=== PATIENT | male | born 2000 | race Caucasian/White ===

== ENCOUNTER 2021-05-30 19:54 | Inpatient (IN) ==
--- NOTE | 2021-05-30 20:13 | Emergency Department Note ---
Impression & Plan Drug overdose, Suicidal thoughts ADMIT TO PSYCHIATRY ED Provider Note HPI: The patient is a 20-year-old male with history of anxiety/depression, presents the emergency department after a escitalopram overdose. Patient states that approximately 1 hour prior to arrival he took 15 separate 10 mg tablets of escitalopram. Patient states that this was an attempt to harm himself. Patient states he has been feeling increasingly anxious and depressed recently. He declines to expand on this very much during my history, he is cooperative on arrival, denies any recent alcohol or drug use, states that shortly after taking these medications he informed his girlfriend of the ingestion and therefore they brought him to the ED for further assessment. Patient is alert and oriented on arrival, otherwise hemodynamically stable. ROS: -Psychiatric: Suicidal thoughts, depression, drug ingestion/suicide attempt *10 point review systems was conducted and is otherwise negative unless stated above *Outpatient medications and allergy history reviewed PE: General: Alert, NAD HEENT: Normocephalic, atraumatic Eyes: Extraocular eye movement is intact, no scleral erythema Pulmonary: Clear to auscultation bilaterally, no wheezing Cardio: Regular rate and rhythm GI: Abdomen is soft, nontender : No suprapubic tenderness MSK: No evidence of trauma or malformation of the extremities, no edema Skin: No evidence of rash Neuro: Alert, no focal deficits Psychiatric: Cooperative athletic monitor: - An order was placed for continuous cardiac monitoring - Patient was noted to be in sinus rhythm with rate of 60 EKG: Rate: 60 Rhythm: Normal sinus rhythm Intervals: Within normal limits ST changes: No ST elevation Time: 2017 Medical Decision Making: Patient presented to the emergency department after drug overdose on Lexapro. I discussed the case with poison control, recommended observation for 6 hours for medical clearance. Work was obtained that does not show any critical abnormalities. Patient remained stable on the monitor. EKG does not show any evidence of arrhythmia or prolonged intervals. Patient was observed here in the ED until 0200 at the time of signout to my colleague, Dr. Briceno, bed search will be ongoing in the morning for placement. At this time the patient is voluntary/201. He is remained calm and cooperative while in the ED. Patient was signed out in stable condition. Diagnosis: 1. Suicide attempt via drug ingestion 2. SRI overdose 3. Anxiety/depression Disposition: Handoff Chava Lewis DO Emergency Medicine Past Med/Surg History Medical History (Updated 05/31/21 @ 01:53 by Chava Lewis DO) COVID-19 Surgical History No pertinent past surgical history Family History Other Family history non-contributory Social History Smoking Status: Never smoker Preferred Language: Maltese Feels Safe at Home: Yes Allergies Allergies Allergy/AdvReac Type Severity Reaction Status Date / Time DUST Allergy RED EYES, Uncoded 01/29/21 01:48 SNEEZE Home Meds Home Medications Medication Instructions Recorded Confirmed escitalopram oxalate 10 mg tablet 10 mg PO DAILY 05/30/21 05/30/21 (Lexapro) Results & Data (ED) Vital Signs Vital Signs - 24 hr 05/30/21 19:57 05/30/21 20:06 05/30/21 20:10 Temperature 36.8 C Temperature Source Temporal Artery Scan Pulse Rate 76 Pulse Rate [Apical] Pulse Rhythm [Apical] Pulse Strength [Apical] Respiratory Rate 18 Respiratory Effort / Characteristics Non-Labored Respiratory Depth Normal Normal Respiratory Pattern Regular Blood Pressure 147/83 H Blood Pressure [Right Arm] Blood Pressure Mean 104 Blood Pressure Mean [Right Arm] Blood Pressure Position [Right Arm] Pulse Oximetry 96 96 Oxygen Delivery Method Room Air Room Air Sepsis Recent Fever Within 48 Hours No Sepsis New/Unexplained Change in Mental Status N/A Sepsis Action Taken by Nursing No Action Required 05/30/21 21:54 05/30/21 23:31 05/31/21 01:18 Temperature Temperature Source Pulse Rate Pulse Rate [Apical] 55 L 56 L 64 Pulse Rhythm [Apical] Regular Regular Pulse Strength [Apical] Normal Normal Respiratory Rate 18 16 16 Respiratory Effort / Characteristics Non-Labored Spontaneous Non-Labored Non-Labored Spontaneous Respiratory Depth Normal Normal Normal Respiratory Pattern Regular Blood Pressure Blood Pressure [Right Arm] 125/70 119/56 L 129/58 L Blood Pressure Mean Blood Pressure Mean [Right Arm] 88 77 81 Blood Pressure Position [Right Arm] Lying Lying Pulse Oximetry 97 95 97 Oxygen Delivery Method Room Air Room Air Room Air Sepsis Recent Fever Within 48 Hours Sepsis New/Unexplained Change in Mental Status Sepsis Action Taken by Nursing Laboratory Data Result diagrams: 05/30/21 20:26 05/30/21 20:26 Lab Results 05/30/21 05/30/21 05/30/21 Range/Units 20:07 20:07 20:26 WBC 7.02 (4.8-10.8) K/uL RBC 5.20 (4.7-6.1) M/uL Hgb 15.9 (14.0-18.0) g/dL Hct 46.3 (42-52) % MCV 89.0 (80-100) fL MCH 30.6 (25-34) pg MCHC 34.3 (32-36) g/dL RDW Std Deviation 40.2 (36.4-46.3) fL RDW Coeff of Micah 12.3 (11.5-14.5) % Plt Count 241 (130-400) K/uL MPV 11.0 H (7.4-10.4) fL Immature Gran % (Auto) 0.1 % Neut % (Auto) 71.1 % Lymph % (Auto) 22.8 % Kershaw % (Auto) 5.0 % Eos % (Auto) 0.4 % Baso % (Auto) 0.6 % Neut # (Auto) 4.99 (1.4-6.5) K/uL Lymph # (Auto) 1.60 (1.2-3.4) K/uL Kershaw # (Auto) 0.35 (0.11-0.59) K/uL Eos # (Auto) 0.03 (0-0.5) K/uL Baso # (Auto) 0.04 (0-0.2) K/uL Immature Gran # (Auto) 0.01 (0.00-0.02) K/uL Sodium (136-145) mmol/L Potassium (3.5-5.1) mmol/L Chloride (98-107) mmol/L Carbon Dioxide (21-32) mmol/L Anion Gap (3-11) BUN (6-23) mg/dl Creatinine (0.6-1.4) mg/dl Est Cr Clr Drug Dosing ml/min Est GFR ( Amer) ml/min Est GFR (Non-Af Amer) ml/min BUN/Creatinine Ratio (10-20) Glucose (70-99(Fasting)) mg/dl Calcium (8.5-10.1) mg/dl Total Bilirubin (0.2-1.0) mg/dl AST (13-39) U/L ALT (7-52) U/L Alkaline Phosphatase (34-104) U/L Total Protein (6.0-8.3) gm/dl Albumin (3.4-5.0) gm/dl Globulin (2.5-4.0) gm/dl Albumin/Globulin Ratio (0.9-2) TSH (0.300-4.500) uIu/ml Urine Color Yellow Urine Appearance Clear (Clear) Urine pH 5.5 (4.5-7.5) Ur Specific Huddy 1.014 (1.000-1.030) Urine Protein Negative (Negative) Urine Glucose (UA) Negative (Negative) Urine Ketones Negative (Negative) Urine Blood Negative (Negative) Urine Nitrite Negative (Negative) Urine Bilirubin Negative (Negative) Urine Urobilinogen Negative (Negative) Ur Leukocyte Esterase Negative (Negative) Salicylates (3.0-30) mg/dl Urine Opiates Screen Neg (Neg) Ur Methadone, Qual Neg (Neg) Acetaminophen (10-30) ug/ml Urine Barbiturates Neg (Neg) Ur Phencyclidine (PCP) Neg (Neg) U Amphetamin/Meth Scrn Neg (Neg) MDMA (Ecstasy) Screen Neg (Neg) U Benzodiazepines Scrn Neg (Neg) Ur Cocaine Metabolite Neg (Neg) U Marijuana (THC) Screen Pos H (Neg) Ethyl Alcohol mg/dL (<10.0) mg/dl SARS-CoV-2, RNA, NAAT (NEGATIVE) 05/30/21 05/30/21 05/30/21 Range/Units 20:26 20:26 20:26 WBC (4.8-10.8) K/uL RBC (4.7-6.1) M/uL Hgb (14.0-18.0) g/dL Hct (42-52) % MCV (80-100) fL MCH (25-34) pg MCHC (32-36) g/dL RDW Std Deviation (36.4-46.3) fL RDW Coeff of Micah (11.5-14.5) % Plt Count (130-400) K/uL MPV (7.4-10.4) fL Immature Gran % (Auto) % Neut % (Auto) % Lymph % (Auto) % Kershaw % (Auto) % Eos % (Auto) % Baso % (Auto) % Neut # (Auto) (1.4-6.5) K/uL Lymph # (Auto) (1.2-3.4) K/uL Kershaw # (Auto) (0.11-0.59) K/uL Eos # (Auto) (0-0.5) K/uL Baso # (Auto) (0-0.2) K/uL Immature Gran # (Auto) (0.00-0.02) K/uL Sodium 138 (136-145) mmol/L Potassium 4.2 (3.5-5.1) mmol/L Chloride 101 (98-107) mmol/L Carbon Dioxide 28 (21-32) mmol/L Anion Gap 9 (3-11) BUN 16 (6-23) mg/dl Creatinine 0.98 (0.6-1.4) mg/dl Est Cr Clr Drug Dosing 121.2 ml/min Est GFR ( Amer) 129.0 ml/min Est GFR (Non-Af Amer) 111.3 ml/min BUN/Creatinine Ratio 16.3 (10-20) Glucose 86 (70-99(Fasting)) mg/dl Calcium 10.2 H (8.5-10.1) mg/dl Total Bilirubin 0.7 (0.2-1.0) mg/dl AST 15 (13-39) U/L ALT 10 (7-52) U/L Alkaline Phosphatase 62 (34-104) U/L Total Protein 8.0 (6.0-8.3) gm/dl Albumin 5.3 H (3.4-5.0) gm/dl Globulin 2.7 (2.5-4.0) gm/dl Albumin/Globulin Ratio 2.0 (0.9-2) TSH 1.108 (0.300-4.500) uIu/ml Urine Color Urine Appearance (Clear) Urine pH (4.5-7.5) Ur Specific Huddy (1.000-1.030) Urine Protein (Negative) Urine Glucose (UA) (Negative) Urine Ketones (Negative) Urine Blood (Negative) Urine Nitrite (Negative) Urine Bilirubin (Negative) Urine Urobilinogen (Negative) Ur Leukocyte Esterase (Negative) Salicylates < 3.0 L (3.0-30) mg/dl Urine Opiates Screen (Neg) Ur Methadone, Qual (Neg) Acetaminophen < 3 L (10-30) ug/ml Urine Barbiturates (Neg) Ur Phencyclidine (PCP) (Neg) U Amphetamin/Meth Scrn (Neg) MDMA (Ecstasy) Screen (Neg) U Benzodiazepines Scrn (Neg) Ur Cocaine Metabolite (Neg) U Marijuana (THC) Screen (Neg) Ethyl Alcohol mg/dL (<10.0) mg/dl SARS-CoV-2, RNA, NAAT (NEGATIVE) 05/30/21 05/30/21 Range/Units 20:26 20:26 WBC (4.8-10.8) K/uL RBC (4.7-6.1) M/uL Hgb (14.0-18.0) g/dL Hct (42-52) % MCV (80-100) fL MCH (25-34) pg MCHC (32-36) g/dL RDW Std Deviation (36.4-46.3) fL RDW Coeff of Micah (11.5-14.5) % Plt Count (130-400) K/uL MPV (7.4-10.4) fL Immature Gran % (Auto) % Neut % (Auto) % Lymph % (Auto) % Kershaw % (Auto) % Eos % (Auto) % Baso % (Auto) % Neut # (Auto) (1.4-6.5) K/uL Lymph # (Auto) (1.2-3.4) K/uL Kershaw # (Auto) (0.11-0.59) K/uL Eos # (Auto) (0-0.5) K/uL Baso # (Auto) (0-0.2) K/uL Immature Gran # (Auto) (0.00-0.02) K/uL Sodium (136-145) mmol/L Potassium (3.5-5.1) mmol/L Chloride (98-107) mmol/L Carbon Dioxide (21-32) mmol/L Anion Gap (3-11) BUN (6-23) mg/dl Creatinine (0.6-1.4) mg/dl Est Cr Clr Drug Dosing ml/min Est GFR ( Amer) ml/min Est GFR (Non-Af Amer) ml/min BUN/Creatinine Ratio (10-20) Glucose (70-99(Fasting)) mg/dl Calcium (8.5-10.1) mg/dl Total Bilirubin (0.2-1.0) mg/dl AST (13-39) U/L ALT (7-52) U/L Alkaline Phosphatase (34-104) U/L Total Protein (6.0-8.3) gm/dl Albumin (3.4-5.0) gm/dl Globulin (2.5-4.0) gm/dl Albumin/Globulin Ratio (0.9-2) TSH (0.300-4.500) uIu/ml Urine Color Urine Appearance (Clear) Urine pH (4.5-7.5) Ur Specific Huddy (1.000-1.030) Urine Protein (Negative) Urine Glucose (UA) (Negative) Urine Ketones (Negative) Urine Blood (Negative) Urine Nitrite (Negative) Urine Bilirubin (Negative) Urine Urobilinogen (Negative) Ur Leukocyte Esterase (Negative) Salicylates (3.0-30) mg/dl Urine Opiates Screen (Neg) Ur Methadone, Qual (Neg) Acetaminophen (10-30) ug/ml Urine Barbiturates (Neg) Ur Phencyclidine (PCP) (Neg) U Amphetamin/Meth Scrn (Neg) MDMA (Ecstasy) Screen (Neg) U Benzodiazepines Scrn (Neg) Ur Cocaine Metabolite (Neg) U Marijuana (THC) Screen (Neg) Ethyl Alcohol mg/dL < 10.0 (<10.0) mg/dl SARS-CoV-2, RNA, NAAT NEGATIVE (NEGATIVE) Administered Medications Discontinued Medications Sodium Chloride (Nss) 500 mls @ 999 mls/hr IV .[id number] [id number] Stop: 05/30/21 20:45 Last Infusion: 05/30/21 21:03 Dose: 0 mls/hr Documented by: [id number] Admin: 05/30/21 20:30 Dose: 999 mls/hr Documented by: [id number] Discharge Plan Visit Data Chief Complaint: Overdose (Intentional) Stated Complaint: Took 15 lexapro ED Provider: Chava Lewis Discharge Problem: Drug overdose, Suicidal thoughts Forms Stand Alone Forms: My [facility], Suicide Prevention Resources Prescriptions Prescriptions: No Action escitalopram oxalate [Lexapro] 10 mg Tablet 10 mg PO DAILY RF: 0 Referrals Referrals: [facility] [Primary Care Provider] - Discharge Problem: Drug overdose Qualifiers: Encounter type: initial encounter Injury intent: intentional self-harm Qualified Code(s): T50.902A - Poisoning by unspecified drugs, medicaments and biological substances, intentional self-harm, initial encounter
[2021-05-30] MEDS ORDERED: SODIUM CHLORIDE 0.9% 500 ML IV SCH (20:15)
[2021-05-30 20:20] LABS: Appearance Urine Clear (Clear); Bilirubin Urine Negative (Negative); Blood Urine Negative (Negative); Color Urine Yellow; Glucose Urine UA Negative (Negative); Ketones Urine Negative (Negative); Leukocyte Esterase Urine Negative (Negative); Nitrite Urine Negative (Negative); Protein Urine Negative (Negative); Specific Gravity Urine 1.014 (1.000-1.030); Urobilinogen Urine Negative (Negative); pH Urine 5.5 (4.5-7.5)
[2021-05-30 20:37] LABS: Basophils # (auto) 0.04 K/uL (0-0.2); Basophils % (auto) 0.6 %; Eosinophils # (auto) 0.03 K/uL (0-0.5); Eosinophils % (auto) 0.4 %; Hematocrit (blood only) 46.3 % (42-52); Hemoglobin 15.9 g/dL (14.0-18.0); Immature Granulocytes # (auto) 0.01 K/uL (0.00-0.02); Immature Granulocytes % (auto) 0.1 %; Lymphocytes % (auto) 22.8 %; Mean Corpuscular Hemoglobin 30.6 pg (25-34); Mean Corpuscular Hgb Conc 34.3 g/dL (32-36); Monocytes # (auto) 0.35 K/uL (0.11-0.59); Neutrophils # (auto) 4.99 K/uL (1.4-6.5); Neutrophils % (auto) 71.1 %; Platelet Count 241 K/uL (130-400); RDW Coefficient of Variation 12.3 % (11.5-14.5); RDW Standard Deviation 40.2 fL (36.4-46.3); White Blood Count 7.02 K/uL (4.8-10.8)
[2021-05-30 21:00] LABS: Amphetamines+Metham, Urine Neg (Neg); Barbiturates, Urine Neg (Neg); Benzodiazepine, Urine Neg (Neg); Cocaine, Urine Neg (Neg); MDMA (Ecstacy), Urine Neg (Neg); Methadone, Urine Neg (Neg); Opiate, Urine Neg (Neg); Phencyclidine, Urine Neg (Neg)
[2021-05-30 21:01] LABS: Acetaminophen < 3 ug/ml (10-30); Salicylate < 3.0 mg/dl (3.0-30)
[2021-05-30 21:03] LABS: Albumin Level 5.3 gm/dl (3.4-5.0); BUN Creatinine Ratio 16.3 (10-20); Bilirubin,Total 0.7 mg/dl (0.2-1.0); Calcium 10.2 mg/dl (8.5-10.1); Creatinine Clr Calc Pharmacy 121.2 ml/min; Est GFR (Non-African American) 111.3 ml/min; Globulin 2.7 gm/dl (2.5-4.0); Potassium 4.2 mmol/L (3.5-5.1)
[2021-05-31] MEDS ORDERED: MAGNESIUM HYDROXIDE SUSP 30 ML UDC PO PRN (02:42)
[2021-05-31] MEDS ORDERED: ACETAMINOPHEN 325 MG TAB PO PRN (02:42)
[2021-05-31] MEDS ORDERED: SODIUM CHLORIDE 0.65% NA SOLN 45 ML (OCEAN) PRN (02:42)
[2021-05-31] MEDS ORDERED: hydrOXYzine HCl 25 MG TAB PO PRN ×2 (02:42)
[2021-05-31] MEDS ORDERED: BISMUTH SUBSALICYLATE LIQD 236 ML PO PRN (02:42)
[2021-05-31] MEDS ORDERED: ALUMINUM/MAGNESIUM SUSP 30 ML UDC PO PRN (02:42)
--- NOTE | 2021-05-31 09:14 | History & Physical ---
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 Diagnostically consistent with persistent depressive disorder and BHAVNA as well as difficulty with impulse control at times particularly with regards to using substances and video game use. The patient is deemed unstable and requires psychiatric hospitalization for diagnostic clarification, safety and stabilization, medication management and development of further coping skills. Discussed treatment options including recommendation of therapy and medication options. He is agreeable to therapy. Discussed medication treatment options in detail. Discussed risks, benefits and alternatives. Patient would like to start sertraline for depression and BHAVNA. Counseled on black box warning of potential for emergence of or increased SI and need to let staff know should this occur or should they feel unsafe. Also discussed importance of seeking emergency care following discharge if this side effect occurs in the future. The patient's use history suggests problematic substance use regarding marijuana. Brief intervention was offered and accepted. Intervention was greater than 5 minutes in length and included assessing readiness to quit, advice on how to reduce or abstain and to set a specific goal for this hospitalization. electronics worker will also assist in anticipating barriers to reducing or abstaining from substance use and in problem-solving for solutions to those problems while arranging for referral to appropriate treatment. The patient is in contemplative stage with regards to transtheoretical model of change. The patient is advised to decrease consumption due to depressant effects and risk of interaction with prescription medications. The patient agreed to consider reducing his marijuana use and will be provided with recovery materials to continue to educate self on how to cope with their condition without using s ubstances. (1) Drug overdose: Encounter type: initial encounter Injury intent: intentional self -harm Qualified Code(s): T50.902A - Poisoning by unspecified drugs, medicaments and biological substances, intentional self-harm, initial encounter (2) Persistent depressive disorder with anxious distress, currently severe: (3) BHAVNA (generalized anxiety disorder): (4) Suicidal thoughts: (5) Cannabis use disorder, moderate, dependence: (6) Kian disorder: 05/31/21: The patient was admitted to the [facility] ([facility] mental [facility] unit) on q15 min checks (behavioral with suicide precautions) for safety. The patient will participate in group, recreational, and milieu therapies and will be offered additional individual and family sessions as clinically appropriate. -Start sertraline tomorrow if he continues to be asymptomatic from overdose attempt -Will talk to Dr. Bey for further collateral/provide update Inventory Assets Strengths: supportive girlfriend, good rapport with outpatient psychiatrist Needs: additional coping skills, therapy, medication adjustments Risk Factors Assessment Acute risk is high given recent attempt, impulsivity, ambivalence about surviving attempt, chronic SI and he feels limited support from his family. Chronic risk is moderate given chronic SI. Most significant modifiable risk factor is treating depressive symptoms, developing additional coping skills and establishment of outpatient follow-up. Male: Yes : Yes Do You Have Access To A Gun?: No Health Problems: No Mental Health Diagnoses: Yes Substance Use Disorders: No Previous Attempt: Yes Family History of Suicide: No Previous Psychiatric Hospitalization: No Hopelessness: Yes Smoker: No Protective Factors Assessment Employed: Yes (student) Stable Relationships: Yes Supportive Family: Yes (feels he can talk to his dad sometimes) Good Rapport with Provider: Yes Psychiatric History Identifying Data IGLESIA WINN is a 20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 Chief Complaint "I felt like it would be better if I wasn't here". History of Present Illness Iglesia was brought to the ED after taking 15 tabs of 10mg escitalopram on the evening of 05/30/21 as an impulsive suicide attempt in the context of recent inconsistent adherence with escitalopram. He initially denied any recent exacerbation of depression nor any other specific inciting events or precipitants but was later able to identify that a fight with his girlfriend and worsening academic stress contributed. He states he was stressed and "little things were making me more and more anxious and mad". Yesterday he woke up around 2:30pm which is typical for him, he went to sleep around 8:30am. Then he was playing video games online with friends. Then he felt mad at the game and frustrated with himself that he wasn't playing it well and then his girlfriend came back from getting her car fixed and they got into argument. He notes "I think I just got overwhelmed from that". Then he said something mean to her and "got into one of those moods" where he feels like "it would be better off if I wasn't here". Then he remembered that he forgot to take his lexapro for the last few days because he had an exam during the time when he had his phone alarm reminder set so he took the rest of what he had. He was hoping he would fall asleep and not wake up the next morning. Then his girlfriend came to check on him and could sense something was wrong "and she wouldn't stop bugging me until I told her". He was brought to the ED by his girlfriend who he identifies as a good support. He describes a long history of chronic SI, occurring daily, lasting for a few minutes throughout the day usually lasting in total 30 minutes per day since beginning of high school. He tries to cope by using distraction with video games or lifting weights but it's been hard to balance things with the academic pressure. Sometimes intrusive even when he is feeling happy but also occurs when he doesn't meet the expectations he has for himself. He holds himself to high standards and has high expectations for himself. He endorses symptoms of depression including low self-worth/worthlessness, hopelessness, anhedonia, sleep has been stable but he stays awake late kian, stable energy level, concentration is stable, low motivation, tearfulness, irritability. He feels like these symptoms have been there for years and never fluctuate. Has had times where anger gets intense and has broken furniture and put a hole in the dry wall. Never physically violent toward anyone else. He feels "mixed" about having survived the attempt, "part of me wishes I had ". "I got tired of fighting it". With the SI he thinks about plans of jumping off the balcony of his apartment building in [place], shooting himself with a gun, or overdosing. He denies any rehearsal behaviors. Psychiatric ROS notable for positive for anxiety generalized; no hx panic attacks; no hx yesenia; history of hearing his name being called or sounds he recognizes from the video games; plays video games 2-8 hours per day struggles to reduce how much he plays when he needs to do school work; history of some restriction of meals to twice per day if not exercising, worries about gaining weight, never binging, no calorie counting; no OCD; history of self-harm of punching his leg or head when he had thoughts of SI, it's been about 1 month since he's done this;no history of trauma. Past Psychiatric History Current Psychiatric Diagnosis: MDD Outpatient Services: Psychiatrist Dr. Clemente Bey in [place] [facility] (once a month via telemedicine visit) since Jan 2021, no therapist Previous Psych Admissions: n/a Do You Have Access To A Gun?: No History of Previous Suicide Attempt: No Describe Attempts in the Past: No prior attempts. Past Medication Trials: escitalopram since January 2021 and it seems to be helping-he finds it's slightly easier to block those thoughts but he feels the stress of school added on and he couldn't block out the thoughts as much anymore Past Head Trauma/Neuro History History of Concussion/Seizure: No Allergies Allergy/AdvReac Type Severity Reaction Status Date / Time DUST Allergy RED EYES, Uncoded 01/29/21 01:48 SNEEZE Home Medications Medication Instructions Recorded Confirmed Type escitalopram oxalate 10 mg tablet 10 mg PO DAILY 05/30/21 05/30/21 History (Lexapro) Family History Family History of: Depression (mom) Alcohol History Hx of Alcohol Use Over the Past 12 Months: Yes (2-4x/month, 4-6 drinks) AUDIT Total Score: 5 never had blackouts Smoking Use Have You Smoked or Used Tobacco Products in the Last 30 Days: No Smoking Status: Current some day smoker (had been vaping but recently stopping buying about 1 week ago ) Substance History Hx of Prescription Med Misuse Over the Past 12 Months: No Hx of Over the Counter Med Misuse Over the Past 12 Months: No Hx of Inhalent Misuse Over the Past 12 Months: No Hx of Organic Substance Use Over the Past 12 Months: Yes (marijuana 2-3x/week) Hx of Illegal Substances/Street Drug Use Over Past 12 Months: No Problems as a Result of Past Substance Use: None Identified Likes that marijuana calms him down, makes him relax and helps him be distracted from his thoughts. He doesn't like how dependent he's become on it "because when I'm not high he's often thinking of when he can get high next". Took OxyContin and other recreational substances in the past, last > 1 year ago. Personal History Living Arrangements: Dorm (with roommate) Childhood: From [place], his dad, mom and sister live there Highest Grade Completed: High School Graduate Employment Status: Student ([employer] in [employer]) Beliefs That Will Affect Care: None Current Legal Problems: No Hx Legal Problems: No Hx Traumatic Life Events: No Additional Comments: academically withdrew last semester due to mood symptoms impacting his focus and concentration. This semester things have been going better with exception of one class. GPA is about a 2.1. Has been with his girlfriend for about 14 months. Patient History Medical History (Updated 05/31/21 @ 14:10 by Shirin Rayo MD) COVID-19 BHAVNA (generalized anxiety disorder) Persistent depressive disorder with anxious distress, currently severe Surgical History No pertinent past surgical history Family History Other Family history non-contributory Social History Smoking Status: Current some day smoker (had been vaping but recently stopping buying about 1 week ago ) Preferred Language: Thai Communication Ability: Effective Speech Pathology Supervisor Required: No Beliefs That Will Affect Care: None Feels Safe at Home: Yes Assistive Devices: None Review of Systems Review of Systems: All systems reviewed & are unremarkable except as noted in HPI & below Physical Exam Psychiatric: Orientation: alert and oriented x 3 Apperance: appropriately dressed and appropriately groomed Eye Contact: + fair eye contact Motor Behavior: no abnormal motor movements Speech: normal rate/rhythm/volume of speech Affect: + flat affect Mood: + depressed mood and + anxious mood Thought Process: + concrete thought process Thought Content: reality based without delusions Suicidal Thoughts: denies suicidal intent (feels safe in the hospital, able to safety contract); + reports suicidal thoughts (remains ambivalent about surviving attempt ) and + reports suicidal plan Homicidal Thoughts: denies homicidal thoughts Hallucinations: no auditory hallucinations and no visual hallucinations Cognition: recent memory grossly intact, remote memory grossly intact, attention grossly intact and language grossly intact Estimated Intelligence: consistent with education level Insight: + limited insight Judgement: + limited judgement Vital Signs (Past 24 Hours): Last Vital Signs Temp 36.9 C 05/31/21 06:00 Pulse 66 05/31/21 06:51 Resp 14 05/31/21 06:00 BP 137/77 05/31/21 06:51 Pulse Ox 97 05/31/21 01:18 Exam Statement: A physical exam was performed in the ED by Dr. Lewis for the purposes of medical clearance. I accept that physical as correct and adequate for the purposes of the inpatient physical exam. Results & Data ([facility]) Laboratory Results Laboratory Results - last 24 hr 05/30/21 05/30/21 05/30/21 20:07 20:07 20:07 WBC RBC Hgb Hct MCV MCH MCHC RDW Std Deviation RDW Coeff of Micah Plt Count MPV Immature Gran % (Auto) Neut % (Auto) Lymph % (Auto) Ransom % (Auto) Eos % (Auto) Baso % (Auto) Neut # (Auto) Lymph # (Auto) Ransom # (Auto) Eos # (Auto) Baso # (Auto) Immature Gran # (Auto) Sodium Potassium Chloride Carbon Dioxide Anion Gap BUN Creatinine Est Cr Clr Drug Dosing Est GFR ( Amer) Est GFR (Non-Af Amer) BUN/Creatinine Ratio Glucose Calcium Total Bilirubin AST ALT Alkaline Phosphatase Total Protein Albumin Globulin Albumin/Globulin Ratio TSH Urine Color Yellow Urine Appearance Clear Urine pH 5.5 Ur Specific [place] 1.014 Urine Protein Negative Urine Glucose (UA) Negative Urine Ketones Negative Urine Blood Negative Urine Nitrite Negative Urine Bilirubin Negative Urine Urobilinogen Negative Ur Leukocyte Esterase Negative Salicylates Urine Opiates Screen Neg Ur Methadone, Qual Neg Acetaminophen Urine Barbiturates Neg Ur Phencyclidine (PCP) Neg U Amphetamin/Meth Scrn Neg MDMA (Ecstasy) Screen Neg U Benzodiazepines Scrn Neg Ur Cocaine Metabolite Neg U Marijuana (THC) Screen Pos H U Marijuana THC Carboxy Pending Drug Screen Comment Pending Ethyl Alcohol mg/dL SARS-CoV-2, RNA, NAAT 05/30/21 05/30/21 05/30/21 20:26 20:26 20:26 WBC 7.02 RBC 5.20 Hgb 15.9 Hct 46.3 MCV 89.0 MCH 30.6 MCHC 34.3 RDW Std Deviation 40.2 RDW Coeff of Micah 12.3 Plt Count 241 MPV 11.0 H Immature Gran % (Auto) 0.1 Neut % (Auto) 71.1 Lymph % (Auto) 22.8 Ransom % (Auto) 5.0 Eos % (Auto) 0.4 Baso % (Auto) 0.6 Neut # (Auto) 4.99 Lymph # (Auto) 1.60 Ransom # (Auto) 0.35 Eos # (Auto) 0.03 Baso # (Auto) 0.04 Immature Gran # (Auto) 0.01 Sodium 138 Potassium 4.2 Chloride 101 Carbon Dioxide 28 Anion Gap 9 BUN 16 Creatinine 0.98 Est Cr Clr Drug Dosing 121.2 Est GFR ( Amer) 129.0 Est GFR (Non-Af Amer) 111.3 BUN/Creatinine Ratio 16.3 Glucose 86 Calcium 10.2 H Total Bilirubin 0.7 AST 15 ALT 10 Alkaline Phosphatase 62 Total Protein 8.0 Albumin 5.3 H Globulin 2.7 Albumin/Globulin Ratio 2.0 TSH 1.108 Urine Color Urine Appearance Urine pH Ur Specific [place] Urine Protein Urine Glucose (UA) Urine Ketones Urine Blood Urine Nitrite Urine Bilirubin Urine Urobilinogen Ur Leukocyte Esterase Salicylates Urine Opiates Screen Ur Methadone, Qual Acetaminophen Urine Barbiturates Ur Phencyclidine (PCP) U Amphetamin/Meth Scrn MDMA (Ecstasy) Screen U Benzodiazepines Scrn Ur Cocaine Metabolite U Marijuana (THC) Screen U Marijuana THC Carboxy Drug Screen Comment Ethyl Alcohol mg/dL SARS-CoV-2, RNA, NAAT 05/30/21 05/30/21 05/30/21 20:26 20:26 20:26 WBC RBC Hgb Hct MCV MCH MCHC RDW Std Deviation RDW Coeff of Micah Plt Count MPV Immature Gran % (Auto) Neut % (Auto) Lymph % (Auto) Ransom % (Auto) Eos % (Auto) Baso % (Auto) Neut # (Auto) Lymph # (Auto) Ransom # (Auto) Eos # (Auto) Baso # (Auto) Immature Gran # (Auto) Sodium Potassium Chloride Carbon Dioxide Anion Gap BUN Creatinine Est Cr Clr Drug Dosing Est GFR ( Amer) Est GFR (Non-Af Amer) BUN/Creatinine Ratio Glucose Calcium Total Bilirubin AST ALT Alkaline Phosphatase Total Protein Albumin Globulin Albumin/Globulin Ratio TSH Urine Color Urine Appearance Urine pH Ur Specific [place] Urine Protein Urine Glucose (UA) Urine Ketones Urine Blood Urine Nitrite Urine Bilirubin Urine Urobilinogen Ur Leukocyte Esterase Salicylates < 3.0 L Urine Opiates Screen Ur Methadone, Qual Acetaminophen < 3 L Urine Barbiturates Ur Phencyclidine (PCP) U Amphetamin/Meth Scrn MDMA (Ecstasy) Screen U Benzodiazepines Scrn Ur Cocaine Metabolite U Marijuana (THC) Screen U Marijuana THC Carboxy Drug Screen Comment Ethyl Alcohol mg/dL < 10.0 SARS-CoV-2, RNA, NAAT NEGATIVE Current Inpatient Medications Current Inpatient Medications: Current Inpatient Medications Acetaminophen (Acetaminophen 325 Mg Tab) 650 mg PO Q4H PRN PRN Reason: Headache or Minor Fever Stop: 06/30/21 02:41 Al Hydrox/Mg Hydrox/Simethicone (Aluminum/Magnesium Susp 30 Ml Udc) 30 ml PO Q4H PRN PRN Reason: GI Upset Stop: 06/30/21 02:41 Bismuth Subsalicylate (Bismuth Subsalicylate Liqd 236 Ml) 15 ml PO PRN PRN PRN Reason: Loose Stool Stop: 06/30/21 02:41 Hydroxyzine HCl (Hydroxyzine Hcl 25 Mg Tab) 50 mg PO HSZ PRN PRN Reason: Insomnia Stop: 06/30/21 02:41 Hydroxyzine HCl (Hydroxyzine Hcl 25 Mg Tab) 25 mg PO Q4H PRN PRN Reason: Anxiety Stop: 06/30/21 02:41 Magnesium Hydroxide (Magnesium Hydroxide Susp 30 Ml Udc) 30 ml PO DAILY PRN PRN Reason: Constipation Stop: 06/30/21 02:41 Sodium Chloride (Sodium Chloride 0.65% Na Soln 45 Ml ([place])) 1 - 2 sprays NA PRN PRN PRN Reason: Nasal Dryness/Congestion Stop: 06/30/21 02:41
--- NOTE | 2021-05-31 11:19 | Electrocardiogram Report ---
Test Reason : Blood Pressure : / mmHG Vent. Rate : 060 BPM Atrial Rate : 060 BPM P-R Int : 122 ms QRS Dur : 096 ms QT Int : 400 ms P-R-T Axes : 050 071 051 degrees QTc Int : 400 ms Normal sinus rhythm Normal ECG No previous ECGs available Confirmed by Arslan Marcum ([id number]) on 05/31/2021 11:19:26 AM Referred By: Chava Lewis Confirmed By:Arslan Marcum
--- NOTE | 2021-06-01 09:57 | Psychiatric Progress Note ---
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 Diagnostically consistent with persistent depressive disorder and BHAVNA as well as difficulty with impulse control at times particularly with regards to using substances and video game use. The patient is deemed unstable and requires psychiatric hospitalization for diagnostic clarification, safety and stabilization, medication management and development of further coping skills. 06/01/21: Continuing to do motivational interviewing regarding marijuana use and video game use. No new physical symptoms or concerns for lingering effects from escitalopram overdose, he consents to starting sertraline today. Spoke with his outpatient psychiatrist Dr. Bey who confirmed the history Iglesia provided and was in agreement with plan for sertraline. Iglesia continues to decline having his parents involved in his care and declines having me reach out to them to provide any updates. (1) Drug overdose: (2) Persistent depressive disorder with anxious distress, currently severe: (3) BHAVNA (generalized anxiety disorder): (4) Suicidal thoughts: (5) Cannabis use disorder, moderate, dependence: (6) Damian disorder: 06/01/21: Start sertraline 25mg qd, spoke with Dr. Bey, ongoing motivational interviewing regarding cannabis use 05/31/21: The patient was admitted to the [facility] ([facility] mental health unit) on q15 min checks (behavioral with suicide precautions) for safety. The patient will participate in group, recreational, and milieu therapies and will be offered additional individual and family sessions as clinically appropriate. -Start sertraline tomorrow if he continues to be asymptomatic from overdose attempt -Will talk to Dr. Bey for further collateral/provide update Inventory Assets Strengths: supportive girlfriend, good rapport with outpatient psychiatrist Needs: additional coping skills, therapy, medication adjustments Risk Factors Assessment Male: Yes : Yes Do You Have Access To A Gun?: No Health Problems: No Mental Health Diagnoses: Yes Substance Use Disorders: No Previous Attempt: Yes Family History of Suicide: No Previous Psychiatric Hospitalization: No Hopelessness: Yes Smoker: No Protective Factors Assessment Employed: Yes (student) Stable Relationships: Yes Supportive Family: Yes (feels he can talk to his dad sometimes) Good Rapport with Provider: Yes Interval History Identifying Information IGLESIA WINN is a 20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 Chief Complaint "I'm pretty sad". Review of Systems Sleep Information Total Hours of Sleep: 7 Sleep Comments: admitted this shift Meal Information Percent Meal Consumed - Breakfast: 100 Percent Meal Consumed - Lunch: 100 Percent Meal Consumed - Dinner: 100 Subjective Subjective Patient was seen & assessed and interval progress reviewed with treatment team nursing and social work. He has been isolative to his room though attended one group with encouragement and has been doing some puzzles today. He describes niyah andersonng sad and having "guilt" from the suicide attempt since he had promised his girlfriend he would never attempt suicide. Processed this and discussed ways to reframe his thoughts and reflect on ways he may be able to seek help differently in the future. He denies any SI today, even chronic intrusive thoughts. He denies any physical symptoms or complaints. Consents to starting sertraline. Had trouble sleeping last night, prefers not to take any medication to help with this. Physical Exam Psychiatric Orientation: alert and oriented x 3 Apperance: appropriately dressed and appropriately groomed Eye Contact: + fair eye contact Motor Behavior: no abnormal motor movements Speech: normal rate/rhythm/volume of speech Affect: + flat affect Mood: + depressed mood and + anxious mood Thought Process: goal directed thought process Thought Content: reality based without delusions Suicidal Thoughts: denies suicidal thoughts, denies suicidal plan and denies suicidal intent Homicidal Thoughts: denies homicidal thoughts Hallucinations: no auditory hallucinations and no visual hallucinations Cognition: recent memory grossly intact, remote memory grossly intact, attention grossly intact and language grossly intact Estimated Intelligence: consistent with education level Insight: + limited insight Judgement: + limited judgement Vital Signs (Past 24 Hours) Last Vital Signs Temp 36.3 C L 06/01/21 06:45 Pulse 79 06/01/21 06:46 Resp 16 06/01/21 06:45 BP 115/70 06/01/21 06:46 Pulse Ox 97 05/31/21 01:18 Results & Data ([facility]) Current Inpatient Medications Current Inpatient Medications: Current Inpatient Medications Acetaminophen (Acetaminophen 325 Mg Tab) 650 mg PO Q4H PRN PRN Reason: Headache or Minor Fever Stop: 06/30/21 02:41 Al Hydrox/Mg Hydrox/Simethicone (Aluminum/Magnesium Susp 30 Ml Udc) 30 ml PO Q4H PRN PRN Reason: GI Upset Stop: 06/30/21 02:41 Bismuth Subsalicylate (Bismuth Subsalicylate Liqd 236 Ml) 15 ml PO PRN PRN PRN Reason: Loose Stool Stop: 06/30/21 02:41 Hydroxyzine HCl (Hydroxyzine Hcl 25 Mg Tab) 50 mg PO HSZ PRN PRN Reason: Insomnia Stop: 06/30/21 02:41 Hydroxyzine HCl (Hydroxyzine Hcl 25 Mg Tab) 25 mg PO Q4H PRN PRN Reason: Anxiety Stop: 06/30/21 02:41 Magnesium Hydroxide (Magnesium Hydroxide Susp 30 Ml Udc) 30 ml PO DAILY PRN PRN Reason: Constipation Stop: 06/30/21 02:41 Sodium Chloride (Sodium Chloride 0.65% Na Soln 45 Ml ([place])) 1 - 2 sprays NA PRN PRN PRN Reason: Nasal Dryness/Congestion Stop: 06/30/21 02:41 Mental Health & Subst Abuse Tx Therapist Name of Therapist: none Pickling Solution Maker Name of Pickling Solution Maker: none Post Discharge Appointments Primary Care Physician Name Of Family Doctor: LIN (1) Drug overdose Encounter type: initial encounter Injury intent: intentional self-harm Qualified Code(s): T50.902A - Poisoning by unspecified drugs, medicaments and biological substances, intentional self-harm, initial encounter
[2021-06-01] MEDS: SERTRALINE HCL 50 MG TABLET PO SCH (14:03)
[2021-06-02] MEDS: SERTRALINE HCL 50 MG TABLET PO SCH (09:12)
--- NOTE | 2021-06-02 15:27 | Psychiatric Progress Note ---
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 Diagnostically consistent with persistent depressive disorder and BHAVNA as well as difficulty with impulse control at times particularly with regards to using substances and video game use. The patient is deemed unstable and requires psychiatric hospitalization for diagnostic clarification, safety and stabilization, medication management and development of further coping skills. 06/02/21: Continuing to do motivational interviewing regarding marijuana use, he is contemplative about cutting down on use. Tolerating the sertraline and consents to dose titration. Allowed nursing to provide clinical update to his mother but otherwise stating his preference to avoid involving his parents in his care; continuing to encourage him to expand his support network. (1) Drug overdose: (2) Persistent depressive disorder with anxious distress, currently severe: (3) BHAVNA (generalized anxiety disorder): (4) Suicidal thoughts: (5) Cannabis use disorder, moderate, dependence: (6) Damian disorder: 06/02/21: Increase sertraline tomorrow to 50mg qAM, continuing with motivational interviewing. Had family meeting with his girlfriend. 06/01/21: Start sertraline 25mg qd, spoke with Dr. Bey, ongoing motivational interviewing regarding cannabis use 05/31/21: The patient was admitted to the [facility] ([facility] mental health unit) on q15 min checks (behavioral with suicide precautions) for safety. The patient will participate in group, recreational, and milieu therapies and will be offered additional individual and family sessions as clinically appropriate. -Start sertraline tomorrow if he continues to be asymptomatic from overdose attempt -Will talk to Dr. Bey for further collateral/provide update Inventory Assets Strengths: supportive girlfriend, good rapport with outpatient psychiatrist Needs: additional coping skills, therapy, medication adjustments Risk Factors Assessment Male: Yes : Yes Do You Have Access To A Gun?: No Health Problems: No Mental Health Diagnoses: Yes Substance Use Disorders: No Previous Attempt: Yes Family History of Suicide: No Previous Psychiatric Hospitalization: No Hopelessness: Yes Smoker: No Protective Factors Assessment Employed: Yes (student) Stable Relationships: Yes Supportive Family: Yes (feels he can talk to his dad sometimes) Good Rapport with Provider: Yes Interval History Identifying Information IGLESIA WINN is a 20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 Chief Complaint "I'm ok". Review of Systems Sleep Information Total Hours of Sleep: 6.5 Sleep Comments: pt on q-15 minute checks Meal Information Percent Meal Consumed - Breakfast: 100 Percent Meal Consumed - Lunch: 100 Percent Meal Consumed - Dinner: 100 Subjective Subjective Patient was seen & assessed and interval progress reviewed with treatment team nursing and social work. Continues to have periods of sadness and guilt related to impact of suicide attempt. Had family meeting with his girlfriend and expressed concerns about his ability to maintain safety outside of the hospital. Continues to have intermittent SI. Woke up once last night but was able to fall back asleep. Tolerating sertraline without side effects. Physical Exam Psychiatric Orientation: alert and oriented x 3 Apperance: appropriately dressed and appropriately groomed Eye Contact: + fair eye contact Motor Behavior: no abnormal motor movements Speech: normal rate/rhythm/volume of speech Affect: + flat affect Mood: + depressed mood and + anxious mood Thought Process: + concrete thought process Thought Content: reality based without delusions Suicidal Thoughts: denies suicidal plan and denies suicidal intent; + reports suicidal thoughts (intermittent SI ) Homicidal Thoughts: denies homicidal thoughts Hallucinations: no auditory hallucinations and no visual hallucinations Cognition: recent memory grossly intact, remote memory grossly intact, attention grossly intact and language grossly intact Estimated Intelligence: consistent with education level Insight: + limited insight Judgement: + limited judgement Vital Signs (Past 24 Hours) Last Vital Signs Temp 36.5 C 06/02/21 06:48 Pulse 71 06/02/21 06:48 Resp 16 06/02/21 06:48 BP 111/79 06/02/21 06:48 Pulse Ox 97 05/31/21 01:18 Results & Data ([facility]) Current Inpatient Medications Current Inpatient Medications: Current Inpatient Medications Acetaminophen (Acetaminophen 325 Mg Tab) 650 mg PO Q4H PRN PRN Reason: Headache or Minor Fever Stop: 06/30/21 02:41 Al Hydrox/Mg Hydrox/Simethicone (Aluminum/Magnesium Susp 30 Ml Udc) 30 ml PO Q4H PRN PRN Reason: GI Upset Stop: 06/30/21 02:41 Bismuth Subsalicylate (Bismuth Subsalicylate Liqd 236 Ml) 15 ml PO PRN PRN PRN Reason: Loose Stool Stop: 06/30/21 02:41 Hydroxyzine HCl (Hydroxyzine Hcl 25 Mg Tab) 50 mg PO HSZ PRN PRN Reason: Insomnia Stop: 06/30/21 02:41 Hydroxyzine HCl (Hydroxyzine Hcl 25 Mg Tab) 25 mg PO Q4H PRN PRN Reason: Anxiety Stop: 06/30/21 02:41 Magnesium Hydroxide (Magnesium Hydroxide Susp 30 Ml Udc) 30 ml PO DAILY PRN PRN Reason: Constipation Stop: 06/30/21 02:41 Sertraline HCl (Sertraline Hcl 50 Mg Tablet) 25 mg PO QAM DAWNA Stop: 07/01/21 13:29 Last Admin: 06/02/21 09:12 Dose: 25 mg Documented by: Sodium Chloride (Sodium Chloride 0.65% Na Soln 45 Ml ([place])) 1 - 2 sprays NA PRN PRN PRN Reason: Nasal Dryness/Congestion Stop: 06/30/21 02:41 Mental Health & Subst Abuse Tx Psychiatrist Name of Psychiatrist: Landen Bey Date of Appointment with Psychiatrist: 06/19/21 Time of Appointment with Psychiatrist: 10:00 Psychiatric Appointment Comment: telehealth Therapist Name of Therapist: Yannick Olmedo Therapist's Phone Number: [phone] Date of Therapist Appointment: 06/09/21 Time of Therapist Appointment: 12:30pm Therapy Appointment Comment: [facility] [address] [place], [place] Needle Molder Name of Needle Molder: none Post Discharge Appointments Primary Care Physician Name Of Family Doctor: [facility] Primary Care Provider Appointment Comment: [facility] (1) Drug overdose Encounter type: initial encounter Injury intent: intentional self-harm Qualified Code(s): T50.902A - Poisoning by unspecified drugs, medicaments and biological substances, intentional self-harm, initial encounter
[2021-06-02 20:41] LABS: Marijuana Quant, GCMS Urine 2329 ng/mL (<5)
[2021-06-03] MEDS: SERTRALINE HCL 50 MG TABLET PO SCH (09:59)
--- NOTE | 2021-06-03 16:20 | Psychiatric Progress Note ---
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 Diagnostically consistent with persistent depressive disorder and BHANVA as well as difficulty with impulse control at times particularly with regards to using substances and video game use. The patient is deemed unstable and requires psychiatric hospitalization for diagnostic clarification, safety and stabilization, medication management and development of further coping skills. 06/03/21: Continuing to do motivational interviewing regarding marijuana use, he is contemplative about cutting down on use. Tolerating the sertraline well and now at effective dose. Continue to review his safety plan and especially coping skills to improve chronic risk should a breakup occur as his girlfriend is his most significant support and strongest deterrent/protective factor. (1) Drug overdose: (2) Persistent depressive disorder with anxious distress, currently severe: (3) BHAVNA (generalized anxiety disorder): (4) Suicidal thoughts: (5) Cannabis use disorder, moderate, dependence: (6) Damian disorder: 06/03/21: Continue sertraline 50mg qd. Continuing motivational interviewing. Completed safety plan and has reviewed it with multiple staff. 06/02/21: Increase sertraline tomorrow to 50mg qAM, continuing with motivational interviewing. Had family meeting with his girlfriend. 06/01/21: Start sertraline 25mg qd, spoke with Dr. Bey, ongoing motivational interviewing regarding cannabis use 05/31/21: The patient was admitted to the [facility] ([facility] mental health unit) on q15 min checks (behavioral with suicide precautions) for safety. The patient will participate in group, recreational, and milieu therapies and will be offered additional individual and family sessions as clinically appropriate. -Start sertraline tomorrow if he continues to be asymptomatic from overdose att empt -Will talk to Dr. Bey for further collateral/provide update Inventory Assets Strengths: supportive girlfriend, good rapport with outpatient psychiatrist Needs: additional coping skills, therapy, medication adjustments Risk Factors Assessment Male: Yes : Yes Do You Have Access To A Gun?: No Health Problems: No Mental Health Diagnoses: Yes Substance Use Disorders: No Previous Attempt: Yes Family History of Suicide: No Previous Psychiatric Hospitalization: No Hopelessness: Yes Smoker: No Protective Factors Assessment Employed: Yes (student) Stable Relationships: Yes Supportive Family: Yes (feels he can talk to his dad sometimes) Good Rapport with Provider: Yes Interval History Identifying Information IGLESIA WINN is a 20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 Chief Complaint "I'm better". Review of Systems Sleep Information Total Hours of Sleep: 6 Sleep Comments: pt on q-15 minute checks Meal Information Percent Meal Consumed - Breakfast: 100 Percent Meal Consumed - Lunch: 100 Percent Meal Consumed - Dinner: 100 Subjective Subjective Patient was seen & assessed and interval progress reviewed with treatment team nursing and social work. Last night felt lonely after taking with his girlfriend with some tearfulness due to missing her. He remains eager for discharge so he can see her again. Tolerating sertraline well without any side effects. Sleep was stable last night. Doing some yoga and exercises. Reviewed other sources of support besides his girlfriend and potential anticipatory counseling regarding how he might feel/react/cope/seek help should he lose his girlfriend's support either during a school break/due to her being busy or if they ever broke up and especially if he developed recurrent or intensifying SI given the chronic nature of these thoughts. He does not anticipate any changes in their relationship status but was able to discuss other coping skills he could use including exer cise, cooking, reaching out to a therapist or utilizing local crisis resources via [employer] or national suicide text or crisis line. Denies any SI today. Remains engaged with milieu and in groups. Physical Exam Psychiatric Orientation: alert and oriented x 3 Apperance: appropriately dressed and appropriately groomed Eye Contact: + fair eye contact Motor Behavior: no abnormal motor movements Speech: normal rate/rhythm/volume of speech Affect: euthymic affect Mood: + anxious mood (eager to see his girlfriend); no depressed mood Thought Process: goal directed thought process and + concrete thought process Thought Content: reality based without delusions Suicidal Thoughts: denies suicidal thoughts, denies suicidal plan and denies suicidal intent Homicidal Thoughts: denies homicidal thoughts Hallucinations: no auditory hallucinations and no visual hallucinations Cognition: recent memory grossly intact, remote memory grossly intact, attention grossly intact and language grossly intact Estimated Intelligence: consistent with education level Insight: + fair insight Judgement: + fair judgement Vital Signs (Past 24 Hours) Last Vital Signs Temp 36.6 C 06/03/21 06:34 Pulse 71 06/03/21 06:35 Resp 16 06/03/21 06:34 BP 109/70 06/03/21 06:35 Pulse Ox 97 05/31/21 01:18 Results & Data ([facility]) Laboratory Results Laboratory Results - last 24 hr 05/30/21 20:07 U Marijuana THC Carboxy 2329 H Drug Screen Comment SEE NOTE Current Inpatient Medications Current Inpatient Medications: Current Inpatient Medications Acetaminophen (Acetaminophen 325 Mg Tab) 650 mg PO Q4H PRN PRN Reason: Headache or Minor Fever Stop: 06/30/21 02:41 Al Hydrox/Mg Hydrox/Simethicone (Aluminum/Magnesium Susp 30 Ml Udc) 30 ml PO Q4H PRN PRN Reason: GI Upset Stop: 06/30/21 02:41 Bismuth Subsalicylate (Bismuth Subsalicylate Liqd 236 Ml) 15 ml PO PRN PRN PRN Reason: Loose Stool Stop: 06/30/21 02:41 Hydroxyzine HCl (Hydroxyzine Hcl 25 Mg Tab) 50 mg PO HSZ PRN PRN Reason: Insomnia Stop: 06/30/21 02:41 Hydroxyzine HCl (Hydroxyzine Hcl 25 Mg Tab) 25 mg PO Q4H PRN PRN Reason: Anxiety Stop: 06/30/21 02:41 Magnesium Hydroxide (Magnesium Hydroxide Susp 30 Ml Udc) 30 ml PO DAILY PRN PRN Reason: Constipation Stop: 06/30/21 02:41 Sertraline HCl (Sertraline Hcl 50 Mg Tablet) 50 mg PO QAM DAWNA Stop: 07/03/21 08:59 Last Admin: 06/03/21 09:59 Dose: 50 mg Documented by: Sodium Chloride (Sodium Chloride 0.65% Na Soln 45 Ml ([place])) 1 - 2 sprays NA PRN PRN PRN Reason: Nasal Dryness/Congestion Stop: 06/30/21 02:41 Mental Health & Subst Abuse Tx Psychiatrist Name of Psychiatrist: Landen Bey Psychiatrist's Date of Appointment with Psychiatrist: 06/19/21 Time of Appointment with Psychiatrist: 10:00 Psychiatric Appointment Comment: Dr. Bey will help w/referrals if needed. Will send email to mom/portal Therapist Name of Therapist: Yannick Olmedo Therapist's Date of Therapist Appointment: 06/09/21 Time of Therapist Appointment: 12:30pm Therapy Appointment Comment: [address], [address] [place], [place] [employer] Architect Name of E Commerce Architect: none Post Discharge Appointments Primary Care Physician Name Of Family Doctor: [facility] Primary Care Provider Appointment Comment: follow up as needed (1) Drug overdose Encounter type: initial encounter Injury intent: intentional self-harm Qualified Code(s): T50.902A - Poisoning by unspecified drugs, medicaments and biological substances, intentional self-harm, initial encounter
[2021-06-04] MEDS: SERTRALINE HCL 50 MG TABLET PO SCH (08:47)
--- NOTE | 2021-06-04 13:06 | Discharge Summary ---
Date of Service June 04, 2021 History of Present Illness Edison was brought to the ED after taking 15 tabs of 10mg escitalopram on the evening of 05/30/21 as an impulsive suicide attempt in the context of recent inconsistent adherence with escitalopram. He initially denied any recent exacerbation of depression nor any other specific inciting events or precipitants but was later able to identify that a fight with his girlfriend and worsening academic stress contributed. He states he was stressed and "little things were making me more and more anxious and mad". Yesterday he woke up around 2:30pm which is typical for him, he went to sleep around 8:30am. Then he was playing video games online with friends. Then he felt mad at the game and frustrated with himself that he wasn't playing it well and then his girlfriend came back from getting her car fixed and they got into argument. He notes "I think I just got overwhelmed from that". Then he said something mean to her and "got into one of those moods" where he feels like "it would be better off if I wasn't here". Then he remembered that he forgot to take his lexapro for the last few days because he had an exam during the time when he had his phone alarm reminder set so he took the rest of what he had. He was hoping he would fall asleep and not wake up the next morning. Then his girlfriend came to check on him and could sense something was wrong "and she wouldn't stop bugging me until I told her". He was brought to the ED by his girlfriend who he identifies as a good support. He describes a long history of chronic SI, occurring daily, lasting for a few minutes throughout the day usually lasting in total 30 minutes per day since beginning of high school. He tries to cope by using distraction with video games or lifting weights but it's been hard to balance things with the academic pressure. Sometimes intrusive even when he is feeling happy but also occurs when he doesn't meet the expectations he has for himself. He holds himself to high standards and has high expectations for himself. He endorses symptoms of depression including low self-worth/worthlessness, hopelessness, anhedonia, sleep has been stable but he stays awake late kian, stable energy level, concentration is stable, low motivation, tearfulness, irritability. He feels like these symptoms have been there for years and never fluctuate. Has had times where anger gets intense and has broken furniture and put a hole in the dry wall. Never physically violent toward anyone else. He feels "mixed" about having survived the attempt, "part of me wishes I had ". "I got tired of fighting it". With the SI he thinks about plans of jumping off the balcony of his ap artment building in [facility], shooting himself with a gun, or overdosing. He denies any rehearsal behaviors. Psychiatric ROS notable for positive for anxiety generalized; no hx panic attacks; no hx yesenia; history of hearing his name being called or sounds he recognizes from the video games; plays video games 2-8 hours per day struggles to reduce how much he plays when he needs to do school work; history of some restriction of meals to twice per day if not exercising, worries about gaining weight, never binging, no calorie counting; no OCD; history of self-harm of punching his leg or head when he had thoughts of SI, it's been about 1 month since he's done this;no history of trauma. Physical Exam Vital Signs (Past 24 Hours) Last Vital Signs Temp 36.7 C 06/04/21 06:00 Pulse 72 06/04/21 06:21 Resp 16 06/04/21 06:00 BP 111/70 06/04/21 06:21 Pulse Ox 97 05/31/21 01:18 See admission H&P and DOD summary. Principal Diagnosis Persistent Depressive Disorder with anxious distress Psychiatric Data See daily stay summary. In short, patient was engaged with the social/therapeutic milieu of the unit, safety was maintained and the patient was cooperative with care. Medication changes included discontinuation of escitalopram and initiation of sertraline for depression and anxiety and they tolerated this well. A family session was held with his girlfriend as he declined to have his parents involved in his care during his admission and safety plan was completed prior to discharge. He consistently denied SI in the days leading up to discharge, was actively engaged with safety planning and discussed his goal of decreasing his marijuana use. Day of Discharge Assessment Today the patient voices readiness for discharge. They note improvement in mood and anxiety. He is "so excited" about discharge and to see his girlfriend and return to his dorm. He denies thoughts of harm to self or others. Thoughts are organized and they are clinically improved from admission. There is no evidence of psychosis. They improved in the hospital with support and medication adjustments. They agree to take medications as prescribed and keep follow-up appointments. At the time of the discharge they are deemed to be stable and appropriate for outpatient level of care. They are not deemed to be at imminent risk of harm to self or others. They are aware of emergency and crisis services. Knows to call 911 or go to nearest emergency care center if in a crisis which cannot be handled as an outpatient. Transition of Care Transition Of Care Record: was reviewed with the patient Advance Directives Advance Directives Information Provided: Yes Advance Directives: No Mental Health Advance Directive: No Advance Directives on File: No Living Will: No Power of Accounting Instructor: No Advance Directives Reason:: Declines as Mental Health Visit. Risk Factors Assessment Acute risk is low given denial of SI, future-oriented, improvement in sleep/energy/appetite and mood and outpatient supports. Chronic risk is moderate given history of periods of chronic SI and non-modifiable risk factors including prior attempt. Male: Yes : Yes Do You Have Access To A Gun?: No Health Problems: No Mental Health Diagnoses: Yes Substance Use Disorders: No Previous Attempt: Yes Family History of Suicide: No Previous Psychiatric Hospitalization: No Hopelessness: No Smoker: No Protective Factors Assessment Employed: Yes (student) Stable Relationships: Yes Supportive Family: Yes (feels he can talk to his dad sometimes) Good Rapport with Provider: Yes Discharge Data Lab Results 05/30/21 05/30/21 05/30/21 20:07 20:07 20:07 WBC RBC Hgb Hct MCV MCH MCHC RDW Std Deviation RDW Coeff of Micah Plt Count MPV Immature Gran % (Auto) Neut % (Auto) Lymph % (Auto) Larue % (Auto) Eos % (Auto) Baso % (Auto) Neut # (Auto) Lymph # (Auto) Larue # (Auto) Eos # (Auto) Baso # (Auto) Immature Gran # (Auto) Sodium Potassium Chloride Carbon Dioxide Anion Gap BUN Creatinine Est Cr Clr Drug Dosing Est GFR ( Amer) Est GFR (Non-Af Amer) BUN/Creatinine Ratio Glucose Calcium Total Bilirubin AST ALT Alkaline Phosphatase Total Protein Albumin Globulin Albumin/Globulin Ratio TSH Urine Color Yellow Urine Appearance Clear Urine pH 5.5 Ur Specific [place] 1.014 Urine Protein Negative Urine Glucose (UA) Negative Urine Ketones Negative Urine Blood Negative Urine Nitrite Negative Urine Bilirubin Negative Urine Urobilinogen Negative Ur Leukocyte Esterase Negative Salicylates Urine Opiates Screen Neg Ur Methadone, Qual Neg Acetaminophen Urine Barbiturates Neg Ur Phencyclidine (PCP) Neg U Amphetamin/Meth Scrn Neg MDMA (Ecstasy) Screen Neg U Benzodiazepines Scrn Neg Ur Cocaine Metabolite Neg U Marijuana (THC) Screen Pos H U Marijuana THC Carboxy 2329 H Drug Screen Comment SEE NOTE Ethyl Alcohol mg/dL SARS-CoV-2, RNA, NAAT 05/30/21 05/30/21 05/30/21 20:26 20:26 20:26 WBC 7.02 RBC 5.20 Hgb 15.9 Hct 46.3 MCV 89.0 MCH 30.6 MCHC 34.3 RDW Std Deviation 40.2 RDW Coeff of Micah 12.3 Plt Count 241 MPV 11.0 H Immature Gran % (Auto) 0.1 Neut % (Auto) 71.1 Lymph % (Auto) 22.8 Larue % (Auto) 5.0 Eos % (Auto) 0.4 Baso % (Auto) 0.6 Neut # (Auto) 4.99 Lymph # (Auto) 1.60 Larue # (Auto) 0.35 Eos # (Auto) 0.03 Baso # (Auto) 0.04 Immature Gran # (Auto) 0.01 Sodium 138 Potassium 4.2 Chloride 101 Carbon Dioxide 28 Anion Gap 9 BUN 16 Creatinine 0.98 Est Cr Clr Drug Dosing 121.2 Est GFR ( Amer) 129.0 Est GFR (Non-Af Amer) 111.3 BUN/Creatinine Ratio 16.3 Glucose 86 Calcium 10.2 H Total Bilirubin 0.7 AST 15 ALT 10 Alkaline Phosphatase 62 Total Protein 8.0 Albumin 5.3 H Globulin 2.7 Albumin/Globulin Ratio 2.0 TSH 1.108 Urine Color Urine Appearance Urine pH Ur Specific [place] Urine Protein Urine Glucose (UA) Urine Ketones Urine Blood Urine Nitrite Urine Bilirubin Urine Urobilinogen Ur Leukocyte Esterase Salicylates Urine Opiates Screen Ur Methadone, Qual Acetaminophen Urine Barbiturates Ur Phencyclidine (PCP) U Amphetamin/Meth Scrn MDMA (Ecstasy) Screen U Benzodiazepines Scrn Ur Cocaine Metabolite U Marijuana (THC) Screen U Marijuana THC Carboxy Drug Screen Comment Ethyl Alcohol mg/dL SARS-CoV-2, RNA, NAAT 05/30/21 05/30/21 05/30/21 20:26 20:26 20:26 WBC RBC Hgb Hct MCV MCH MCHC RDW Std Deviation RDW Coeff of Micah Plt Count MPV Immature Gran % (Auto) Neut % (Auto) Lymph % (Auto) Larue % (Auto) Eos % (Auto) Baso % (Auto) Neut # (Auto) Lymph # (Auto) Larue # (Auto) Eos # (Auto) Baso # (Auto) Immature Gran # (Auto) Sodium Potassium Chloride Carbon Dioxide Anion Gap BUN Creatinine Est Cr Clr Drug Dosing Est GFR ( Amer) Est GFR (Non-Af Amer) BUN/Creatinine Ratio Glucose Calcium Total Bilirubin AST ALT Alkaline Phosphatase Total Protein Albumin Globulin Albumin/Globulin Ratio TSH Urine Color Urine Appearance Urine pH Ur Specific [place] Urine Protein Urine Glucose (UA) Urine Ketones Urine Blood Urine Nitrite Urine Bilirubin Urine Urobilinogen Ur Leukocyte Esterase Salicylates < 3.0 L Urine Opiates Screen Ur Methadone, Qual Acetaminophen < 3 L Urine Barbiturates Ur Phencyclidine (PCP) U Amphetamin/Meth Scrn MDMA (Ecstasy) Screen U Benzodiazepines Scrn Ur Cocaine Metabolite U Marijuana (THC) Screen U Marijuana THC Carboxy Drug Screen Comment Ethyl Alcohol mg/dL < 10.0 SARS-CoV-2, RNA, NAAT NEGATIVE Hospital Course (1) Drug overdose: (2) Persistent depressive disorder with anxious distress, currently severe: (3) BHAVNA (generalized anxiety disorder): (4) Suicidal thoughts: (5) Cannabis use disorder, moderate, dependence: (6) Kian disorder: 06/04/21: Continues to tolerate sertraline well. Excited about discharge. Feels safe and reviewed suicide plan again. Motivated to reduce cannabis use. 06/03/21: Continue sertraline 50mg qd. Continuing motivational interviewing. Completed safety plan and has reviewed it with multiple staff. 06/02/21: Increase sertraline tomorrow to 50mg qAM, continuing with motivational interviewing. Had family meeting with his girlfriend. 06/01/21: Start sertraline 25mg qd, spoke with Dr. Bey, ongoing motivational interviewing regarding cannabis use 05/31/21: The patient was admitted to the [facility] ([facility] inpatient mental health unit) on q15 min checks (behavioral with suicide precautions) for safety. The patient will participate in group, recreational, and milieu therapies and will be offered additional individual and family sessions as clinically appropriate. -Start sertraline tomorrow if he continues to be asymptomatic from overdose attempt -Will talk to Dr. Bey for further collateral/provide update Mental Health & Subst Abuse Tx Psychiatrist Name of Psychiatrist: Landen Bey Psychiatrist's Date of Appointment with Psychiatrist: 06/19/21 Time of Appointment with Psychiatrist: 10:00 Psychiatric Appointment Comment: Dr. Bey will help w/referrals if needed. Will send email to mom/portal Therapist Name of Therapist: Yannick Olmedo Therapist's Date of Therapist Appointment: 06/09/21 Time of Therapist Appointment: 12:30pm Therapy Appointment Comment: [address], [address] [place], [place] Name of [place]: none Post Discharge Appointments Primary Care Physician Name Of Family Doctor: [facility] Primary Care Provider Appointment Comment: follow up as needed Other #1: Name of Aftercare Appointment: Jose Griffin Phone Number of Aftercare Appointment: [phone] Date of Aftercare Appointment: 07/02/21 Time of Aftercare Appointment: 12:45 Aftercare Appointment Comment: [address] [place], [place] #2: Name of Aftercare Appointment: [facility] Discharge Plan Discharge Items Patient Disposition: Home - Self-Care Reason For Visit: MDD, OVERDOSE, INTENTIONAL Discharge Diagnosis: Persistent depressive disorder with anxious distress Activity: Resume your previous activity Non-emergency contact: Primary Care Provider, Psychiatrist and Therapist Call non-emergency contact if: you have any medication questions and your symptoms worsen Follow-up/Referrals: [facility] [Primary Care Provider] - Diet: Regular Addtl Attending Provider Instructions: We discussed two optional mobile apps you could try: 1. Suicide safety plan 2. Virtual hope box SPECIAL CARE INSTRUCTIONS: 1. Follow through with your scheduled aftercare appointments. If unable to keep an appointment, please call to reschedule. 2. Take your medication only as prescribed. Medication should not be changed or stopped without the approval of your doctor. In the event of worsening symptoms or concerns about side effects, contact your doctor immediately. 3. Utilize new healthy coping skills, anger management skills, and stress management skills learned during your hospitalization. Journal feelings and process them with a support person. Identify stressors or situations that may result in relapse, deterioration or inappropriate behaviors and develop a plan to deal with those issues. 4. If your coping skills are ineffective and you are in crisis, contact your outpatient providers for direction. If unable to reach your providers, please call the [facility] CRISIS LINE AT , go to the [facility] walk-in center at [address], [address], [place], or go to the closest Emergency Room. 5. Avoid alcohol and un-prescribed drugs. 6. You have been provided with the Mental Health Advance Directives Pamphlet for your review. 7. Your condition is stable for discharge to outpatient level of care, but recovery is an ongoing process. Ifthoughts to harm yourself or others return, follow the safety plan developed during your stay. Planning for a safe return home includes securing weapons. Our treatment team recommends weaponsbe removed from the home until your outpatient provider reassesses your progress. In rare cases where the items themselvescannot be removed, guns and ammunitionshould be secured separatelyand keys stored by a reliable personoutside of the home. If you were admitted on an involuntary commitment, the police or other legal authorities may be involved in this process. AFTERCARE APPOINTMENTS: * Please call your insurance company prior to your scheduled appointment to confirm your aftercare providers are covered. Take your insurance information to your appointments. WHO TO CALL AND WHEN: Medical Emergencies: For questions or emergencies related to your hospital stay, please contact the Inpatient Behavioral Health Unit at [phone]. A assembler carbon brushes is on-call 01/11 for the Behavioral Health Unit for emergencies At any time you feel your situation is an emergency, you may also call 911 immediately. Pending Studies at Discharge: No Stand-Alone Forms: My [facility] [employer], Smoking Cessation Medications and DC Order Prescriptions: New sertraline 50 mg Tablet 50 mg PO QAM 30 Days Qty: 30 RF: 0 Discontinued escitalopram oxalate [Lexapro] 10 mg Tablet 10 mg PO DAILY RF: 0 Discharge Orders: Discharge Order (Routine); Ordered 06/04/21 Ordered By: Shirin Nova/Other Patient Handouts: Depression: Tips to Help Yourself Admission Data Admit Date/Time: 05/31/21 02:42 Attending Provider: Shirin Rayo Admit Provider: Shirin Rayo Primary Care Provider: [facility] Other Interventions: Discharge Summary Assessment (RN) Last Done: 06/04/21 13:56 PSY Interdisciplinary Discharge Planning Last Done: 06/04/21 13:56 Coding Level of Care Code 58916 D/C day mgmt > 30 min Diagnoses Drug overdose T50.902A Encounter type: initial encounter Injury intent: intentional self-harm Persistent depressive disorder with anxious distress, currently severe F34.1 BHAVNA (generalized anxiety disorder) F41.1 Suicidal thoughts R45.851 Cannabis use disorder, moderate, dependence F12.20 Kian disorder F63.89 Time Spent (min) 40
== END 2021-06-04 14:55 | disposition home or self-care (01) | DRG 881 ==
LOC: ED 19:54 → 3S 05-31 02:42